=== PATIENT | female | born 1990 | race Caucasian/White ===

== ENCOUNTER 2017-03-04 13:10 | Emergency (ER) | payer MEDICAID ==
[2017-03-04 13:19] VITALS: BP 120/60
--- NOTE | 2017-03-04 13:49 | EDM.PDOC ---
ED HPI GENERAL MEDICAL PROBLEM - General Chief Complaint: Skin Complaint Stated Complaint: CYST ON HER TAILBONE Time Seen by Provider: 03/04/17 13:40 Source of Information: Reports: Patient History Limitations: Reports: No Limitations - History of Present Illness INITIAL COMMENTS - FREE TEXT/NARRATIVE: 26 YO WF 33 weeks presents to ER complaining of left buttock pain and swelling from a cyst x 5 days. Pt was seen in [place] ER 2 days ago for the same. Pt had blood work and a call placed to Dr Adenike Sevilla for surgical recommendations. It was suggested that due to advanced and inability to lay on stomach for procedure that conservative measures of Sitz baths and warm compress be followed until after delivery. Pt was instructed that if symptoms worsened she should follow up in [place] for further evaluation and treatment. Pt states that she has been using heating pad and Sitz baths without improvement. Pt denies any fever/chills, no drainage from cyst and no surrounding cellulitis. Pt is here for I and D of left buttock abscess. Duration: Day(s): (5) Location: Reports: Other (left buttock) Quality: Reports: Ache Severity: Moderate Improves with: Reports: None Worsens with: Reports: None Associated Symptoms: Reports: No Other Symptoms Treatments DIGITAL DATA ANALYST: Reports: Acetaminophen, Other (see below) Other Treatments DIGITAL DATA ANALYST: warm baths Lower Sacral Pain Score (Numeric/FACES): 8 - Related Data Allergies Allergy/AdvReac Type Severity Reaction Status Date / Time Penicillins Allergy Rash Verified 03/04/17 13:19 Home Meds: Home Meds Pnv No.122/Iron/Folic Acid [ Multi Tablet] 1 each PO DAILY 03/02/17 [ History] Past Medical History [employer] History: Reports: Other (See Below) Other OB/BYN History: p cyst - Past Surgical History Musculoskeletal Surgical History: Reports: Other (See Below) Other Musculoskeletal Surgeries/Procedures:: ACL repair of LLE Social & Family History - Tobacco Use Smoking Status *Q: Former Smoker Years of Tobacco use: 6 Used Tobacco, but Quit: Yes Month Tobacco Last Used: 03/2014 Second Hand Smoke Exposure: No - Caffeine Use Caffeine Use: Reports: None - Alcohol Use Days Per Week of Alcohol Use: 0 - Recreational Drug Use Recreational Drug Use: No ED ROS GENERAL - Review of Systems Review Of Systems: See Below Constitutional: Reports: No Symptoms HEENT: Reports: No Symptoms Respiratory: Reports: No Symptoms Cardiovascular: Reports: No Symptoms Endocrine: Reports: No Symptoms GI/Abdominal: Reports: No Symptoms : Reports: No Symptoms Musculoskeletal: Reports: No Symptoms Skin: Reports: Other (large left buttock and gluteal cleft cyst ) Neurological: Reports: No Symptoms Psychiatric: Reports: No Symptoms Hematologic/Lymphatic: Reports: No Symptoms Immunologic: Reports: No Symptoms ED EXAM, SKIN/RASH Exam: See Below Exam Limited By: No Limitations General Appearance: Alert, WD/WN, No Apparent Distress Head: Atraumatic, Normocephalic Neck: Normal Inspection, Supple, Non-Tender, Full Range of Motion Respiratory/Chest: No Respiratory Distress, Lungs Clear, Normal Breath Sounds, No Accessory Muscle Use, Chest Non-Tender Cardiovascular: Normal Peripheral Pulses, Regular Rate, Rhythm, No Edema, No Gallop, No JVD, No Murmur, No Rub GI/Abdominal: Normal Bowel Sounds, Soft, Non-Tender, No Organomegaly, No Distention, No Abnormal Bruit, No Mass Back Exam: Other (large indurated area from gluteal fold to left buttock with pallor without erythema) Extremities: Normal Inspection, Normal Range of Motion, Non-Tender, No Pedal Edema, Normal Capillary Refill Neurological: Alert, Oriented, CN II-XII Intact, Normal Cognition, Normal Gait, Normal Reflexes, No Motor/Sensory Deficits Psychiatric: Normal Affect, Normal Mood Skin: Warm, Dry, Intact, Normal Color, No Rash Location, Skin: Back Associated features: Warmth, Tenderness, Swelling, Induration Lymphatic: No Adenopathy Course - Vital Signs Last Recorded V/S: Last Vital Signs Temp 36.4 C 03/04/17 13:17 Pulse 99 03/04/17 13:17 Resp 16 03/04/17 13:17 BP 120/60 03/04/17 13:17 Pulse Ox 98 03/04/17 13:17 - Orders/Labs/Meds Labs: Laboratory Tests 03/04/17 03/04/17 Range/Units 14:00 14:00 WBC 13.3 H (5.0-10.0) 10^3/uL RBC 3.89 (3.80-5.50) 10^6/uL Hgb 11.4 L (12.0-16.0) g/dL Hct 35.3 L (37.0-47.0) % MCV 90.9 (82.0-92.0) fL MCH 29.3 (27.0-31.0) pg MCHC 32.3 (32.0-36.0) g/dL RDW 13.6 (11.5-14.5) % Plt Count 292 (150-300) 10^3/uL MPV 7.8 (7.4-10.4) fL Neut % (Auto) 81.3 H (50.0-70.0) % Lymph % (Auto) 12.3 L (20.0-40.0) % [place] % (Auto) 6.0 (2.0-8.0) % Eos % (Auto) 0.3 L (1.0-3.0) % Baso % (Auto) 0.1 (0.0-1.0) % Neut # (Auto) 10.9 H (2.5-7.0) 10^3/uL Lymph # (Auto) 1.6 (1.0-4.0) 10^3/uL [place] # (Auto) 0.8 (0.1-0.8) 10^3/uL Eos # (Auto) 0.0 L (0.1-0.3) 10^3/uL Baso # (Auto) 0.0 (0.0-0.1) 10^3/uL Sodium 140 (136-145) mmol/L Potassium 3.9 (3.3-5.3) mmol/L Chloride 105 (98-115) mmol/L Carbon Dioxide 23.7 (21.0-32.0) mmol/L BUN 8 (6-25) mg/dL Creatinine 0.70 (0.51-1.17) mg/dL Est Cr Clr Drug Dosing 99.86 mL/min Estimated GFR (MDRD) > 60 mL/min Glucose 135 H (70-110) mg/dL Calcium 8.7 (8.7-10.3) mg/dL - Re-Assessments/Exams Free Text/Narrative Re-Assessment/Exam: 03/04/17 14:33 call placed to [place] one transfer for surgical/OB recommendations. Discusse with Dr Busch Surgery who will direct admit patient and consider I and D of possible infected abscess Departure - Departure Time of Disposition: 14:43 Disposition: DC/Tfer to Acute Hospital 02 Condition: Fair Clinical Impression: Pilonidal cyst with abscess - Discharge Information Referrals: Ailyn Mccormick, SENIOR ANALYTIC CONSULTANT [Primary Care Provider] - Forms: ED Department Discharge, Interfacility Transfer EMTALA - Assessment/Plan Assessment:: 1. possible infected pilonidal cyst Plan: 1. transfer to [facility] for surgical evaluation and treatment- Dr Busch 2. okay to go by private car
[2017-03-04 14:24] LABS: CHLORIDE,CL 105 mmol/L (98-115); SODIUM,NA 140 mmol/L (136-145)
== END 2017-03-04 14:55 ==
LOC: KA.ED 13:10
DX: L05.01 Pilonidal cyst with abscess (principal); Z88.0 Allergy status to penicillin; Z87.891 Personal history of nicotine dependence
CPT/HCPCS: 36415; 80048; 85025; 99283

== ENCOUNTER 2018-09-23 05:00 | Emergency (ER) | payer MEDICAID ==
[2018-09-23] MEDS ORDERED: Ketorolac 30 MG/ML SDV ONE (05:26)
[2018-09-23] MEDS ORDERED: Ondansetron 4 MG/2 ML SDV ONE (05:26)
[2018-09-23] MEDS ORDERED: Sodium Chloride 0.9% 1,000 ML ONE (05:27)
[2018-09-23] MEDS ORDERED: Sodium Chloride 0.9% 1,000 ML IV SCH (05:30)
[2018-09-23] MEDS ORDERED: Ondansetron 4 MG/2 ML SDV IVPUSH ONE (05:30)
[2018-09-23] MEDS ORDERED: Ketorolac 30 MG/ML SDV IVPUSH ONE (05:40)
--- NOTE | 2018-09-23 05:41 | EDM.PDOC ---
ED HPI GENERAL MEDICAL PROBLEM - General Chief Complaint: Abdominal Pain Stated Complaint: RUQ pain Time Seen by Provider: 09/23/18 05:20 Source of Information: Reports: Patient History Limitations: Reports: No Limitations - History of Present Illness INITIAL COMMENTS - FREE TEXT/NARRATIVE: 28 YO WF presents to ER complaining of RUQ abdominal pain which began approximately 1 month ago. Pt reports pain would wax and wane and was tolerable until last night after supper. Pt reports eating pizza and developing pain with nausea. Pt reports she was able to sleep until around 4am when it became unbearable. Pt denies any fever/chills, no vomiting. Pt reports no change in her typical bowel habits. Pt reports shes currently taking Zithromax for a possible strep infection. Onset Date: 09/22/18 Duration: Day(s): (1) Location: Reports: Abdomen Quality: Reports: Dull Severity: Moderate Improves with: Reports: None Worsens with: Reports: Eating Associated Symptoms: Reports: No Other Symptoms, Nausea/Vomiting. 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 Denies: Vomiting : Reports: No Symptoms Musculoskeletal: Reports: No Symptoms Skin: Reports: No Symptoms Neurological: Reports: No Symptoms Psychiatric: Reports: No Symptoms Hematologic/Lymphatic: Reports: No Symptoms Immunologic: Reports: No Symptoms ED EXAM, GI/ABD - Physical Exam Exam: See Below Exam Limited By: No Limitations General Appearance: Alert, WD/WN, No Apparent Distress Head: Atraumatic, Normocephalic Neck: Normal Inspection, Supple, Non-Tender, Full Range of Motion Respiratory/Chest: No Respiratory Distress, Lungs Clear, Normal Breath Sounds, No Accessory Muscle Use, Chest Non-Tender Cardiovascular: Normal Peripheral Pulses, Regular Rate, Rhythm, No Edema, No Gallop, No JVD, No Murmur, No Rub GI/Abdominal Exam: Normal Bowel Sounds, Soft, No Organomegaly, No Distention, No Abnormal Bruit, No Mass, Pelvis Stable, Tender (RUQ) Back Exam: Normal Inspection, Full Range of Motion, NT Extremities: Normal Inspection, Normal Range of Motion, Non-Tender, Normal Capillary Refill, No Pedal Edema Neurological: Alert, Oriented, CN II-XII Intact, Normal Cognition, Normal Gait, Normal Reflexes, No Motor/Sensory Deficits Psychiatric: Normal Affect, Normal Mood Skin Exam: Warm, Dry, Intact, Normal Color, No Rash Lymphatic: No Adenopathy Course - Orders/Labs/Meds Orders: Active Orders 24 hr Category Date Time Status Peripheral IV Care [RC] . DIRECTED Care 09/23/18 05:42 Active UA W/MICROSCOPIC [URIN] Stat Lab 09/23/18 06:30 Results Sodium Chloride 0.9% [Saline Flush] Med 09/23/18 05:42 Active 10 ml FLUSH Q8HR PRN Peripheral IV Insertion Adult [OM.PC] Routine Oth 09/23/18 05:42 Ordered Medication Orders Sodium Chloride (Saline Flush) 10 ml FLUSH Q8HR PRN PRN Reason: keep vein open Labs: Laboratory Tests 09/23/18 09/23/18 09/23/18 Range/Units 05:30 05:30 06:30 WBC 13.02 H (5.00-10.00) 10^3/uL RBC 4.92 (3.80-5.50) 10^6/uL Hgb 13.9 (12.0-16.0) g/dL Hct 41.2 (37.0-47.0) % MCV 83.7 D (82.0-92.0) fL MCH 28.3 (27.0-31.0) pg MCHC 33.7 (32.0-36.0) g/dL RDW 13.7 (11.5-14.5) % Plt Count 283 (150-400) 10^3/uL MPV 9.3 (7.4-10.4) fL Immature Gran % (Auto) 0.2 (0.0-5.0) % Neut % (Auto) 80.5 H (50.0-70.0) % Lymph % (Auto) 13.3 L (20.0-40.0) % [place] % (Auto) 4.7 (2.0-8.0) % Eos % (Auto) 1.1 (1.0-3.0) % Baso % (Auto) 0.2 (0.0-1.0) % Immature Gran # (Auto) 0.02 (0.00-0.50) 10^3/uL Neut # (Auto) 10.49 H (2.50-7.00) 10^3/uL Lymph # (Auto) 1.73 (1.00-4.00) 10^3/uL [place] # (Auto) 0.61 (0.10-0.80) 10^3/uL Eos # (Auto) 0.14 (0.10-0.30) 10^3/uL Baso # (Auto) 0.03 (0.00-0.10) 10^3/uL Sodium 135 L (136-145) mmol/L Potassium 3.9 (3.3-5.3) mmol/L Chloride 103 (98-115) mmol/L Carbon Dioxide 21.3 (21.0-32.0) mmol/L Anion Gap 14.6 (5-15) mmol/L BUN 14 (6-25) mg/dL Creatinine 0.74 (0.51-1.17) mg/dL Est Cr Clr Drug Dosing 96.86 mL/min Estimated GFR (MDRD) > 60 mL/min Glucose 109 H (75 - 99) mg/dL Calcium 8.9 (8.7-10.3) mg/dL Total Bilirubin 0.5 (0.2-1.0) mg/dL AST 12 L (15-37) U/L ALT 19 (12-78) U/L Alkaline Phosphatase 113 (46-116) IU/L Total Protein 7.3 (6.4-8.2) g/dL Albumin 3.26 (3.00-4.80) g/dL Lipase 75 (73-393) U/L HCG, Qual Negative (NEGATIVE) Urine Color Yellow (YELLOW) Urine Appearance Slightly cloudy H (CLEAR) Urine pH 5.5 (5.0-9.0) Ur Specific [place] 1.025 (1.005-1.030) Urine Protein Negative (NEGATIVE) mg/dL Urine Glucose (UA) Negative (NEGATIVE) mg/dL Urine Ketones Negative (NEGATIVE) mg/dL Urine Occult Blood Negative (NEGATIVE) Urine Nitrite Negative (NEGATIVE) Urine Bilirubin Negative (NEGATIVE) Urine Urobilinogen 0.2 (0.2-1.0) E.U./dL Ur Leukocyte Esterase Trace H (NEGATIVE) Meds: Medications Generic Name Dose Route Start Last Admin Trade Name Freq PRN Reason Stop Dose Admin Sodium Chloride 10 ml 09/23/18 05:42 Saline Flush FLUSH Q8HR PRN keep vein open Discontinued Medications Generic Name Dose Route Start Last Admin Trade Name Freq PRN Reason Stop Dose Admin Sodium Chloride Confirm 09/23/18 05:27 Normal Saline Administered 09/23/18 05:28 Dose 1,000 mls @ as directed .ROUTE .STK-MED ONE Ketorolac Tromethamine Confirm 09/23/18 05:26 Toradol Administered 09/23/18 05:27 Dose 30 mg .ROUTE .STK-MED ONE Ondansetron HCl Confirm 09/23/18 05:26 Zofran Administered 09/23/18 05:27 Dose 4 mg .ROUTE .STK-MED ONE - Re-Assessments/Exams Free Text/Narrative Re-Assessment/Exam: 09/23/18 07:12 Pt reports pain improved after toradol/zofran. Pt smiling and in NAD. Offered additional pain medication prior to discharge which patient agreed. Departure - Departure Time of Disposition: 07:13 Disposition: Home, Self-Care 01 Condition: Good Clinical Impression: Cholelithiasis Qualifiers: Cholangitis presence: without cholangitis Biliary obstruction: without biliary obstruction - Discharge Information Prescriptions: Hydrocodone/Acetaminophen [Hydrocodon-Acetaminophn 10-325] 1 each PO Q6HR PRN # 10 tablet PRN Reason: Pain Ondansetron [Zofran ODT] 4 mg PO Q6H PRN #6 tab.dis PRN Reason: Vomiting Instructions: Cholelithiasis Forms: ED Department Discharge Additional Instructions: 1. discharge home 2. recommend RUQ ultrasound today in [facility] to rule out cholecystitis 3. avoid fatty foods, large meals, long periods of fasting (eat small meals/ snacks every 3 hours), avoid dairy 4. hydrocodone 10/325 #10 1 ever 6 hours as needed for pain 5. zofran 4mg ODT 1 every 6 hours as needed for nausea/vomiting - My Orders Last 24 Hours: My Active Orders 09/23/18 05:42 Peripheral IV Care [RC] . DIRECTED Sodium Chloride 0.9% [Saline Flush] 10 ml FLUSH Q8HR PRN Peripheral IV Insertion Adult [OM.PC] Routine 09/23/18 06:30 UA W/MICROSCOPIC [URIN] Stat - Assessment/Plan Last 24 Hours: My Active Orders 09/23/18 05:42 Peripheral IV Care [RC] . DIRECTED Sodium Chloride 0.9% [Saline Flush] 10 ml FLUSH Q8HR PRN Peripheral IV Insertion Adult [OM.PC] Routine 09/23/18 06:30 UA W/MICROSCOPIC [URIN] Stat Assessment:: 1. Cholelithiasis Plan: 1. discharge home 2. recommend RUQ ultrasound today in [facility] to rule out cholecystitis 3. avoid fatty foods, large meals, long periods of fasting (eat small meals/ snacks every 3 hours), avoid dairy 4. hydrocodone 10/325 #10 1 ever 6 hours as needed for pain 5. zofran 4mg ODT 1 every 6 hours as needed for nausea/vomiting
[2018-09-23] MEDS ORDERED: Sodium Chloride 0.9% 10 ML Syringe FLUSH PRN (05:42)
[2018-09-23 06:08] LABS: ANION GAP 14.6 mmol/L (5-15); CHLORIDE,CL 103 mmol/L (98-115); SODIUM,NA 135 mmol/L (136-145)
[2018-09-23] MEDS ORDERED: HYDROmorphone 1 MG/ML Syringe IVPUSH ONE (07:12)
[2018-09-23 08:02] VITALS: BP 130/78; PULSE 86
== END 2018-09-23 07:40 | disposition home or self-care (01) ==
LOC: KA.ED 05:00
DX: K80.20 Calculus of gallbladder without cholecystitis without obstruction (principal); Z88.0 Allergy status to penicillin; Z79.899 Other long term (current) drug therapy
CPT/HCPCS: 80053; 81001; 83690; 84703; 85025; 96361; 96374; 96375; 99284; J1170; J1885; J2405; J7030

== ENCOUNTER 2018-09-25 22:50 | Emergency (ER) | payer MEDICAID ==
[2018-09-25] MEDS ORDERED: Sodium Chloride 0.9% 10 ML Syringe FLUSH PRN (22:58)
--- NOTE | 2018-09-25 23:14 | EDM.PDOC ---
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 Medication(s), Other (see below) (Hydrocodone 10 325mg) Right Abdomen Pain Score (Numeric/FACES): 5 - Related Data Allergies Allergy/AdvReac Type Severity Reaction Status Date / Time Penicillins Allergy Rash Verified 09/23/18 05:44 Home Meds: Home Meds Hydrocodone/Acetaminophen [Hydrocodon-Acetaminophn 10-325] 1 each PO Q6HR PRN # 10 tablet 09/23/18 [Rx] Ondansetron [Zofran ODT] 4 mg PO Q6H PRN #6 tab.dis 09/23/18 [Rx] Past Medical History HEENT History: Reports: None Cardiovascular History: Reports: None Respiratory History: Reports: Asthma, Other (See Below) (smoking related) Gastrointestinal History: Reports: Chronic Diarrhea, Other (See Below) (lactose intolerant) Genitourinary History: Reports: None MAGNETIC TESTER History: 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: Other (See Below) : 2 Para: 2 Other MAGNETIC TESTER History: p cyst Musculoskeletal History: Reports: None, Other (See Below) (ACL tear Left knee) Neurological History: Reports: None Psychiatric History: Reports: None Endocrine/Metabolic History: Reports: None Hematologic History: Reports: None Immunologic History: Reports: None - Past Surgical History Head Surgeries/Procedures: Reports: None HEENT Surgical History: Reports: None Cardiovascular Surgical History: Reports: None Respiratory Surgical History: Reports: None GI Surgical History: Reports: None Endocrine Surgical History: Reports: None Musculoskeletal Surgical History: Reports: Arthroscopic Knee, Other (See Below) Other Musculoskeletal Surgeries/Procedures:: ACL repair of LLE - Past Imaging History Past Imaging History: Reports: MRI (knee), Ultrasound (rt upper quadrant) Social & Family History - Tobacco Use Smoking Status *Q: Current Every Day Smoker Tobacco Use Within Last Twelve Months: Cigarettes Used Tobacco, but Quit: No Smoking Cessation Information Provided To Patient: Patient Refused - Caffeine Use Caffeine Use: Reports: None ED ROS GENERAL - Review of Systems Review Of Systems: See Below Constitutional: Reports: Chills HEENT: Reports: Throat Pain Respiratory: Reports: Cough (She attributes to smoking) Cardiovascular: Denies: Chest Pain, Claudication, Dyspnea on Exertion Endocrine: Reports: No Symptoms GI/Abdominal: Reports: Abdominal Pain (Right upper quadrant greater than one month worsening over the past week), Diarrhea : Reports: No Symptoms Musculoskeletal: Reports: No Symptoms Skin: Reports: No Symptoms Neurological: Reports: No Symptoms Psychiatric: Reports: No Symptoms Hematologic/Lymphatic: Reports: No Symptoms Immunologic: Reports: No Symptoms ED EXAM, GENERAL - Physical Exam Exam: See Below Free Text/Narrative:: Alert and oriented in mild painful distress. PERRLA EOM intact no icterus no injection Auditory canals are clear no involvement with tympanic membranes Nasal passages are patent pink and moist Posterior oral pharynx is extremely red with exudative slough to the bilateral tonsillar pillars halitosis as well as order smoking product present neck Supple no lymphadenopathy Thorax is clear throughout mild rhonchi I attributed to her smoking no wheezes. Cardiac S1-S2 no appreciated murmur. Abdomen rotund right upper quadrant tenderness radiating upwards as well as lateral, no epigastric no left upper quadrant, no lower quadrant no rebound tenderness. Bowel sounds are present in all 4 quadrants rectal is deferred. Lower extremities are pink warm and dry with no edema Exam Limited By: No Limitations Course - Vital Signs Last Recorded V/S: Last Vital Signs Temp 37.0 C 09/25/18 23:00 Pulse 96 09/26/18 00:07 Resp 20 09/26/18 00:07 BP 137/81 09/26/18 00:07 Pulse Ox 96 09/26/18 00:07 - Orders/Labs/Meds Orders: Active Orders 24 hr Category Date Time Status Peripheral IV Care [RC] . DIRECTED Care 09/25/18 22:58 Active CULTURE STREP A CONFIRMATION [RM] Stat Lab 09/25/18 23:14 Results STREP SCRN A RAPID W CULT CONF [RM] Stat Lab 09/25/18 23:19 Ordered Sodium Chloride 0.9% [Normal Saline] 1,000 ml Med 09/25/18 23:30 Ordered IV ASDIRECTED Sodium Chloride 0.9% [Saline Flush] Med 09/25/18 22:58 Active 10 ml FLUSH Q8HR PRN Peripheral IV Insertion Adult [OM.PC] Routine Oth 09/25/18 22:58 Ordered Medication Orders Sodium Chloride (Normal Saline) 1,000 mls @ 500 mls/hr IV ASDIRECTED SONNY Last Admin: 09/25/18 23:33 Dose: 500 mls/hr Sodium Chloride (Saline Flush) 10 ml FLUSH Q8HR PRN PRN Reason: keep vein open Last Admin: 09/25/18 23:33 Dose: 10 ml Labs: Laboratory Tests 09/25/18 09/25/18 09/25/18 Range/Units 23:10 23:10 23:15 WBC 8.13 (5.00-10.00) 10^3/uL RBC 4.88 (3.80-5.50) 10^6/uL Hgb 14.0 (12.0-16.0) g/dL Hct 41.7 (37.0-47.0) % MCV 85.5 (82.0-92.0) fL MCH 28.7 (27.0-31.0) pg MCHC 33.6 (32.0-36.0) g/dL RDW 13.7 (11.5-14.5) % Plt Count 281 (150-400) 10^3/uL MPV 9.7 (7.4-10.4) fL Immature Gran % (Auto) 0.1 (0.0-5.0) % Neut % (Auto) 65.1 (50.0-70.0) % Lymph % (Auto) 26.4 (20.0-40.0) % Ida % (Auto) 6.8 (2.0-8.0) % Eos % (Auto) 1.2 (1.0-3.0) % Baso % (Auto) 0.4 (0.0-1.0) % Immature Gran # (Auto) 0.01 (0.00-0.50) 10^3/uL Neut # (Auto) 5.29 (2.50-7.00) 10^3/uL Lymph # (Auto) 2.15 (1.00-4.00) 10^3/uL Ida # (Auto) 0.55 (0.10-0.80) 10^3/uL Eos # (Auto) 0.10 (0.10-0.30) 10^3/uL Baso # (Auto) 0.03 (0.00-0.10) 10^3/uL Sodium 136 (136-145) mmol/L Potassium 3.8 (3.3-5.3) mmol/L Chloride 102 (98-115) mmol/L Carbon Dioxide 25.6 (21.0-32.0) mmol/L Anion Gap 12.2 (5-15) mmol/L BUN 12 (6-25) mg/dL Creatinine 0.84 (0.51-1.17) mg/dL Est Cr Clr Drug Dosing TNP Estimated GFR (MDRD) > 60 mL/min Glucose 97 (75 - 99) mg/dL Calcium 8.9 (8.7-10.3) mg/dL Total Bilirubin 0.2 (0.2-1.0) mg/dL AST 18 (15-37) U/L ALT 29 (12-78) U/L Alkaline Phosphatase 122 H (46-116) IU/L Total Protein 7.6 (6.4-8.2) g/dL Albumin 3.25 (3.00-4.80) g/dL Amylase 47 (25-125) U/L Lipase 90 (73-393) U/L Specimen Type Urincc Urine Color Yellow (YELLOW) Urine Appearance Slightly cloudy H (CLEAR) Urine pH 5.5 (5.0-9.0) Ur Specific [place] 1.025 (1.005-1.030) Urine Protein Negative (NEGATIVE) mg/dL Urine Glucose (UA) Negative (NEGATIVE) mg/dL Urine Ketones Negative (NEGATIVE) mg/dL Urine Occult Blood Trace-intact H (NEGATIVE) Urine Nitrite Negative (NEGATIVE) Urine Bilirubin Negative (NEGATIVE) Urine Urobilinogen 0.2 (0.2-1.0) E.U./dL Ur Leukocyte Esterase Trace H (NEGATIVE) Urine RBC 0-5 (0-5) /HPF Urine WBC 5-10 H (0-5) /HPF Ur Epithelial Cells Moderate H /LPF Urine Bacteria Few (NONE TO FEW) /HPF Meds: Medications Generic Name Dose Route Start Last Admin Trade Name Perri PRN Reason Stop Dose Admin Sodium Chloride 1,000 mls @ 500 mls/hr 09/25/18 23:30 09/25/18 23:33 Normal Saline IV 500 mls/hr ASDIRECTED SONNY Administration Sodium Chloride 10 ml 09/25/18 22:58 09/25/18 23:33 Saline Flush FLUSH 10 ml Q8HR PRN Administration keep vein open Discontinued Medications Generic Name Dose Route Start Last Admin Trade Name Frereinaldo PRN Reason Stop Dose Admin Sodium Chloride Confirm 09/25/18 23:28 09/25/18 23:32 Normal Saline Administered 09/25/18 23:29 Not Given Dose 500 mls @ as directed .ROUTE .STK-MED ONE Sodium Chloride Confirm 09/25/18 23:30 09/25/18 23:54 Normal Saline Administered 09/25/18 23:31 Not Given Dose 1,000 mls @ as directed .ROUTE .STK-MED ONE Meperidine HCl 50 mg 09/25/18 23:21 09/25/18 23:32 Demerol IVPUSH 09/25/18 23:22 50 mg ONETIME ONE Administration Ondansetron HCl 8 mg 09/25/18 23:43 09/25/18 23:47 Zofran IVPUSH 09/25/18 23:44 8 mg ONETIME ONE Administration Departure - Departure Time of Disposition: 00:30 Disposition: Home, Self-Care 01 Condition: Good Clinical Impression: Cholecystitis, Pharyngitis - Discharge Information *PRESCRIPTION DRUG MONITORING PROGRAM REVIEWED*: Not Applicable *COPY OF PRESCRIPTION DRUG MONITORING REPORT IN PATIENT SILVESTRE: Not Applicable Instructions: Gallbladder Eating Plan Forms: ED Department Discharge Additional Instructions: Home rest maintain good fluid intake. Avoid dairy products other than yogurt to help settle the GI tract from your antibiotic you had taken. Consideration for lactose diet would be beneficial. Avoid any foods that contain fat/grease or dairy products as in butter/peanut butter, or any foods that are oily in nature. It is safe to drink water and eat lettuce, and you may have chicken breast with no skin there is prepared by broiler or grilling with no oils, margarine's or any grease preparation. Discussed with your provider if they are able to make arrangements for scan sooner than the 26th of this month as your discomfort seems to be worsening on a daily basis. Try decrease and stop smoking as possible for overall benefit to your health as well as her family members. Call or return if symptoms worsen or pain becomes unbearable with your current medication regimen. - Problem List & Annotations (1) Cholecystitis SNOMED Code(s): 06588645 Code(s): K81.9 - CHOLECYSTITIS, UNSPECIFIED Status: Chronic Priority: High (2) Smokes tobacco daily SNOMED Code(s): 442658047 Code(s): Z72.0 - TOBACCO USE Status: Acute Priority: Medium (3) Pharyngitis SNOMED Code(s): 424295799 Code(s): J02.9 - ACUTE PHARYNGITIS, UNSPECIFIED Status: Chronic Priority : Medium Onset Date: ~09/24/18 Annotation/Comment:: Placed on azithromycin Z -Hal on the eighth prophylaxis treatment as children were positive for strep Qualifiers: Pharyngitis/tonsillitis etiology: unspecified etiology Qualified Code(s): J02.9 - Acute pharyngitis, unspecified - Problem List Review Problem List Initiated/Reviewed/Updated: Yes - My Orders Last 24 Hours: My Active Orders 09/25/18 22:58 Peripheral IV Care [RC] . DIRECTED Sodium Chloride 0.9% [Saline Flush] 10 ml FLUSH Q8HR PRN Peripheral IV Insertion Adult [OM.PC] Routine 09/25/18 23:14 CULTURE STREP A CONFIRMATION [RM] Stat 09/25/18 23:19 STREP SCRN A RAPID W CULT CONF [RM] Stat 09/25/18 23:30 Sodium Chloride 0.9% [Normal Saline] 1,000 ml IV ASDIRECTED - Assessment/Plan Last 24 Hours: My Active Orders 09/25/18 22:58 Peripheral IV Care [RC] . DIRECTED Sodium Chloride 0.9% [Saline Flush] 10 ml FLUSH Q8HR PRN Peripheral IV Insertion Adult [OM.PC] Routine 09/25/18 23:14 CULTURE STREP A CONFIRMATION [RM] Stat 09/25/18 23:19 STREP SCRN A RAPID W CULT CONF [RM] Stat 09/25/18 23:30 Sodium Chloride 0.9% [Normal Saline] 1,000 ml IV ASDIRECTED Plan: Home rest maintain good fluid intake. Avoid dairy products other than yogurt to help settle the GI tract from your antibiotic you had taken. Consideration for lactose diet would be beneficial. Avoid any foods that contain fat/grease or dairy products as in butter/peanut butter, or any foods that are oily in nature. It is safe to drink water and eat lettuce, and you may have chicken breast with no skin there is prepared by broiler or grilling with no oils, margarine's or any grease preparation. Discussed with your provider if they are able to make arrangements for scan sooner than the of this month as your discomfort seems to be worsening on a daily basis. Try decrease and stop smoking as possible for overall benefit to your health as well as her family members. Call or return if symptoms worsen or pain becomes unbearable with your current medication regimen.
[2018-09-25] MEDS ORDERED: Meperidine PF 50 MG/ML Syringe IVPUSH ONE (23:21)
[2018-09-25] MEDS ORDERED: Sodium Chloride 0.9% 0 ML ONE (23:28)
[2018-09-25] MEDS ORDERED: Sodium Chloride 0.9% 1,000 ML IV SCH (23:30)
[2018-09-25] MEDS ORDERED: Sodium Chloride 0.9% 250 ML IV SCH (23:30)
[2018-09-25] MEDS ORDERED: Sodium Chloride 0.9% 1,000 ML ONE (23:30)
[2018-09-25] MEDS ORDERED: Ondansetron 4 MG/2 ML SDV IVPUSH ONE (23:43)
[2018-09-25 23:46] LABS: ANION GAP 12.2 mmol/L (5-15); CHLORIDE,CL 102 mmol/L (98-115); SODIUM,NA 136 mmol/L (136-145)
[2018-09-26 00:08] VITALS: BP 137/81; PULSE 96
== END 2018-09-26 00:35 | disposition home or self-care (01) ==
LOC: KA.ED 22:50
DX: K81.9 Cholecystitis, unspecified (principal); J02.9 Acute pharyngitis, unspecified; F17.210 Nicotine dependence, cigarettes, uncomplicated; Z88.0 Allergy status to penicillin
CPT/HCPCS: 80053; 81001; 82150; 83690; 85025; 87081; 87430; 96361; 96374; 96375; 99284; J2175; J2405; J7030

== ENCOUNTER 2020-01-03 06:48 | Emergency (ER) | payer MEDICAID ==
[2020-01-03 07:02] VITALS: BP 135/78; PULSE 86
[2020-01-03] MEDS: Tetracaine HCl/PF 0.5% 4 ML Bottle EYERT ONE (07:42)
--- NOTE | 2020-01-03 07:54 | EDM.PDOC ---
ED HPI GENERAL MEDICAL PROBLEM - General Chief Complaint: General Stated Complaint: foreign boy sensation in right eye Time Seen by Provider: 01/03/20 07:50 Source of Information: Reports: Patient History Limitations: Reports: No Limitations - History of Present Illness INITIAL COMMENTS - FREE TEXT/NARRATIVE: 29 YO WF PRESENTS TO ER WITH FOREIGN BODY SENSATION IN RIGHT EYE AFTER CUTTING WOOD LAST NIGHT. PT REPORTS SHE WENT TO BED AND WHEN SHE WOKE SHE STILL FELT LIKE SOMETHING WAS IN HER EYE PROMPTING ER EVALUATION. AT THE TIME OF EXAM PT REPORTS SHE THINKS IT MAY HAVE COME OUT WHILE WAITING FOR THE PROVIDER. PT DENIES ANY VISUAL CHANGES, NO GLOBAL DISCOMFORT OR HEADACHE. Onset Date: 01/02/20 Onset Time: 20:00 Duration: Day(s): (1) Quality: Reports: Ache Severity: Mild Improves with: Reports: None Worsens with: Reports: None Associated Symptoms: Reports: No Other Symptoms - Related Data Allergies Allergy/AdvReac Type Severity Reaction Status Date / Time hydrocodone [From [place]] Allergy Anaphylactic Verified 01/03/20 07:04 Shock Penicillins Allergy Rash Verified 01/03/20 07:04 Home Meds: Home Meds Hydrocort/Neomycin/Polymyxin B [Cortisporin Ophth Susp] 3 drop OP Q4H #1 bottle 01/03/20 [Rx] Past Medical History HEENT History: Reports: None Cardiovascular History: Reports: None Respiratory History: Reports: Asthma, Other (See Below) Gastrointestinal History: Reports: Chronic Diarrhea, Other (See Below) Genitourinary History: Reports: None 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 (See Below) Other X RAY NURSE History: p cyst Musculoskeletal History: Reports: None, Other (See Below) Neurological History: Reports: None Psychiatric History: Reports: None Endocrine/Metabolic History: Reports: None Hematologic History: Reports: None Immunologic History: Reports: None - Infectious Disease History Infectious Disease History: Reports: Mononucleosis - Past Surgical History Head Surgeries/Procedures: Reports: None HEENT Surgical History: Reports: None Cardiovascular Surgical History: Reports: None Respiratory Surgical History: Reports: None GI Surgical History: Reports: None Endocrine Surgical History: Reports: None Musculoskeletal Surgical History: Reports: Arthroscopic Knee, Other (See Below) Other Musculoskeletal Surgeries/Procedures:: ACL repair of LLE - Past Imaging History Past Imaging History: Reports: MRI (knee), Ultrasound (rt upper quadrant) Social & Family History - Family History Family Medical History: No Pertinent Family History - Tobacco Use Tobacco Use Status *Q: Current Every Day Tobacco User Years of Tobacco use: 12 Packs/Tins Daily: 0.2 - Caffeine Use Caffeine Use: Reports: None - Recreational Drug Use Recreational Drug Use: No ED ROS GENERAL - Review of Systems Review Of Systems: See Below Constitutional: Reports: No Symptoms HEENT: Reports: Eye Pain. Denies: Contact Lenses, Eye Discharge, Glasses Respiratory: Reports: No Symptoms Cardiovascular: Reports: No Symptoms Endocrine: Reports: No Symptoms GI/Abdominal: Reports: No Symptoms : Reports: No Symptoms Musculoskeletal: Reports: No Symptoms Skin: Reports: No Symptoms Neurological: Reports: No Symptoms Psychiatric: Reports: No Symptoms Hematologic/Lymphatic: Reports: No Symptoms Immunologic: Reports: No Symptoms ED EXAM, GENERAL - Physical Exam Exam: See Below Exam Limited By: No Limitations General Appearance: Alert, WD/WN, No Apparent Distress Eye Exam: Right Eye: Conjunctival Injection, Bilateral Eye: EOMI, PERRL Ears: Normal External Exam, Normal Canal, Hearing Grossly Normal, Normal TMs Nose: Normal Inspection, Normal Mucosa, No Blood Throat/Mouth: Normal Inspection, Normal Lips, Normal Teeth, Normal Gums, Normal Oropharynx, Normal Voice, No Airway Compromise Head: Atraumatic, Normocephalic Neck: Normal Inspection, Supple, Non-Tender, Full Range of Motion Respiratory/Chest: No Respiratory Distress, Lungs Clear, Normal Breath Sounds, No Accessory Muscle Use, Chest Non-Tender Cardiovascular: Normal Peripheral Pulses GI/Abdominal: Normal Bowel Sounds, Soft, Non-Tender, No Organomegaly, No Distention, No Abnormal Bruit, No Mass Neurological: Alert, Oriented, CN II-XII Intact, Normal Cognition, Normal Gait, No Motor/Sensory Deficits Psychiatric: Normal Affect, Normal Mood Skin Exam: Warm, Dry, Intact, Normal Color, No Rash Lymphatic: No Adenopathy Course - Vital Signs Last Recorded V/S: Last Vital Signs Temp 36.2 C 01/03/20 06:55 Pulse 86 01/03/20 06:55 Resp 18 01/03/20 06:55 BP 135/78 01/03/20 06:55 Pulse Ox 98 01/03/20 06:55 - Orders/Labs/Meds Meds: Medications Discontinued Medications Generic Name Dose Route Start Last Admin Trade Name Freq PRN Reason Stop Dose Admin Tetracaine HCl 1 ml 01/03/20 07:38 Tetracaine 0.5% Steri-Unit Milady EYERT 01/03/20 07:39 ASDIRECTED ONE - Re-Assessments/Exams Free Text/Narrative Re-Assessment/Exam: 01/03/20 07:55 VISUAL ACUITY- 20/20 R 20/25 L NO EVIDENCE OF CORNEAL ABRASION OR FOREIGN BODY ON EXAM PT REPORTS SENSATION HAS RESOLVED Departure - Departure Time of Disposition: 07:59 Disposition: Home, Self-Care 01 Condition: Good Clinical Impression: Sensation of foreign body in eye - Discharge Information Prescriptions: Hydrocort/Neomycin/Polymyxin B [Cortisporin Ophth Susp] 3 drop OP Q4H #1 bottle Instructions: Eye Foreign Body Additional Instructions: 1. DISCHARGE HOME 2. CORTISPORIN OPTHAL SOLUTION 3 DROPS IN RIGHT EYE EVERY 4 HOURS X 3 DAYS 3. FOLLOW UP WITH PCP FOR FURTHER EVALUATION AND TREATMENT 4. RETURN TO ER FOR WORSENING SYMPTOMS Sepsis Event Note (ED) - Evaluation Sepsis Screening Result: No Definite Risk - Focused Exam Vital Signs: Vital Signs Temp Pulse Resp BP Pulse Ox 01/03/20 06:55 36.2 C 86 18 135/78 98 - Assessment/Plan Assessment:: 1. FOREIGN BODY SENSATION IN RIGHT EYE Plan: 1. DISCHARGE HOME 2. CORTISPORIN OPTHAL SOLUTION 3 DROPS IN RIGHT EYE EVERY 4 HOURS X 3 DAYS 3. FOLLOW UP WITH PCP FOR FURTHER EVALUATION AND TREATMENT 4. RETURN TO ER FOR WORSENING SYMPTOMS
== END 2020-01-03 08:10 | disposition home or self-care (01) ==
LOC: KA.ED 06:48
DX: H57.89 Other specified disorders of eye and adnexa (principal); J45.909 Unspecified asthma, uncomplicated; F17.210 Nicotine dependence, cigarettes, uncomplicated; Z88.5 Allergy status to narcotic agent; Z88.0 Allergy status to penicillin
CPT/HCPCS: 99283

== ENCOUNTER 2021-01-15 04:18 | Emergency (ER) | payer MEDICAID ==
[2021-01-15] MEDS ORDERED: Sodium Chloride 0.9% 1,000 ML ONE (04:44)
[2021-01-15] MEDS ORDERED: Ondansetron 4 MG/2 ML SDV ONE (04:44)
[2021-01-15] MEDS ORDERED: Ondansetron 4 MG/2 ML SDV IVPUSH ONE (04:46)
[2021-01-15] MEDS ORDERED: Sodium Chloride 0.9% 1,000 ML IV ONE (04:47)
[2021-01-15] MEDS ORDERED: Sodium Chloride 0.9% 10 ML Syringe FLUSH PRN (04:47)
[2021-01-15 05:25] LABS: CHLORIDE,CL 103 mmol/L (98-107); SODIUM,NA 140 mmol/L (136-145)
[2021-01-15 05:36] VITALS: BP 125/77; PULSE 84
--- NOTE | 2021-01-15 05:46 | EDM.PDOC ---
ED HPI GENERAL MEDICAL PROBLEM - General Chief Complaint: General Stated Complaint: head/vision issues Time Seen by Provider: 01/15/21 05:10 Source of Information: Reports: Patient History Limitations: Reports: No Limitations - History of Present Illness INITIAL COMMENTS - FREE TEXT/NARRATIVE: 30-year-old female presents with 1 week history of upper respiratory complaints, cough. This past evening she is experiencing some dizziness and visual vertigo symptoms. Her tested positive for COVID a week ago on Sunday. She has had the symptoms for approximately the same amount of time. She denies any fever or chills. She is without respiratory complaints consistent of shortness of breath, dyspnea or tachypnea. She has been taken NyQuil for her symptoms. She is not experiencing any GI symptoms or abdominal pain. Upon her presentation today she is nontoxic-appearing she is in no respiratory distress. She does have a cough. Onset: Gradual Onset Date: 01/07/21 Duration: Day(s):, Constant Location: Reports: Head Severity: Mild Improves with: Reports: None Worsens with: Reports: None Context: Reports: Sick Contact Associated Symptoms: Reports: Cough, Malaise. 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: Other Medication(s) (NyQuil) - Related Data Allergies Allergy/AdvReac Type Severity Reaction Status Date / Time hydrocodone [From [place]] Allergy Anaphylactic Verified 01/15/21 04:31 Shock Penicillins Allergy Rash Verified 01/15/21 04:31 Home Meds: Home Meds Acetaminophen 650 mg PO Q6H PRN 01/15/21 [History] Cholecalciferol (Vitamin D3) [Vitamin D3] 2,000 unit PO DAILY 01/15/21 [History] Dextromethorphan HB/Doxylamine [Daytime-Nighttime Cough Liquid] 30 ml PO Q4HR PRN 01/15/21 [History] Past Medical History HEENT History: Reports: None Cardiovascular History: Reports: None Respiratory History: Reports: Asthma, Other (See Below) Gastrointestinal History: Reports: Chronic Diarrhea, Other (See Below) Genitourinary History: Reports: None SEAM RUBBER History: Reports: Other (See Below) Other SEAM RUBBER History: p cyst Musculoskeletal History: Reports: None, Other (See Below) Neurological History: Reports: None Psychiatric History: Reports: None Endocrine/Metabolic History: Reports: None Hematologic History: Reports: None Immunologic History: Reports: None - Infectious Disease History Infectious Disease History: Reports: Mononucleosis - Past Surgical History Head Surgeries/Procedures: Reports: None HEENT Surgical History: Reports: None Cardiovascular Surgical History: Reports: None Respiratory Surgical History: Reports: None GI Surgical History: Reports: None Endocrine Surgical History: Reports: None Musculoskeletal Surgical History: Reports: Arthroscopic Knee, Other (See Below) Other Musculoskeletal Surgeries/Procedures:: ACL repair of LLE - Past Imaging History Past Imaging History: Reports: MRI (knee), Ultrasound (rt upper quadrant) Social & Family History - Family History Family Medical History: No Pertinent Family History - Tobacco Use Tobacco Use Status *Q: Current Every Day Tobacco User Years of Tobacco use: 13 Packs/Tins Daily: 0.3 - Caffeine Use Caffeine Use: Reports: None - Recreational Drug Use Recreational Drug Use: No ED ROS GENERAL - Review of Systems Review Of Systems: See Below Constitutional: Reports: Malaise. Denies: Fever, Chills, Weakness, Diaphoresis HEENT: Reports: Vertigo (Dizziness complaints). Denies: Vision Change Respiratory: Reports: Cough. Denies: Shortness of Breath, Wheezing, Sputum Cardiovascular: Reports: Lightheadedness. Denies: Chest Pain, Blood Pressure Problem, Orthopnea, Palpitations Endocrine: Reports: No Symptoms GI/Abdominal: Denies: Abdominal Pain, Diarrhea, Nausea, Vomiting : Reports: No Symptoms Musculoskeletal: Reports: No Symptoms Skin: Denies: Cyanosis, Diaphoresis, Pruritis, Rash Neurological: Reports: Dizziness. Denies: Confusion, Headache, Seizure, Syncope, Trouble Speaking, Difficulty Walking, Change in Speech, Gait Disturbance Psychiatric: Reports: No Symptoms Hematologic/Lymphatic: Reports: No Symptoms Immunologic: Reports: No Symptoms ED EXAM, GENERAL - Physical Exam Exam: See Below Exam Limited By: No Limitations General Appearance: Alert, No Apparent Distress, Obese, Other (Nontoxic- appearing no acute distress. No respiratory distress) Eye Exam: Bilateral Eye: EOMI Ears: Hearing Grossly Normal Throat/Mouth: No Airway Compromise Head: Atraumatic, Normocephalic Neck: Normal Inspection Respiratory/Chest: No Respiratory Distress, Lungs Clear, Normal Breath Sounds, No Accessory Muscle Use, Chest Non-Tender Cardiovascular: Regular Rate, Rhythm, No Murmur GI/Abdominal: Soft, Non-Tender Back Exam: Normal Inspection Extremities: Normal Inspection Neurological: Alert, Oriented, No Motor/Sensory Deficits Psychiatric: Normal Affect, Normal Mood Skin Exam: Warm Lymphatic: No Adenopathy Course - Vital Signs Last Recorded V/S: Last Vital Signs Temp 98.3 F 01/15/21 04:24 Pulse 84 01/15/21 04:24 Resp 20 01/15/21 04:24 BP 125/77 01/15/21 04:24 Pulse Ox 95 01/15/21 04:24 - Orders/Labs/Meds Orders: Active Orders 24 hr Category Date Time Status Peripheral IV Care [RC] . DIRECTED Care 01/15/21 04:47 Active Sodium Chloride 0.9% [Normal Saline] 1,000 ml Med 01/15/21 04:47 Active IV .BOLUS Sodium Chloride 0.9% [Saline Flush] Med 01/15/21 04:47 Active 10 ml FLUSH Q8HR PRN Peripheral IV Insertion Adult [OM.PC] Routine Oth 01/15/21 04:47 Ordered Medication Orders Sodium Chloride (Normal Saline) 1,000 mls @ 999 mls/hr IV .BOLUS ONE Stop: 01/15/21 05:47 Last Admin: 01/15/21 05:10 Dose: 999 mls/hr Documented by: MARCOS Sodium Chloride (Sodium Chloride 0.9% 10 Ml Syringe) 10 ml FLUSH Q8HR PRN PRN Reason: keep vein open Last Admin: 01/15/21 04:58 Dose: 10 ml Documented by: MARCOS Labs: Laboratory Tests 01/15/21 01/15/21 01/15/21 Range/Units 04:50 04:58 04:58 WBC 5.37 (5.00-10.00) 10^3/uL RBC 5.27 (3.80-5.50) 10^6/uL Hgb 14.7 (12.0-16.0) g/dL Hct 44.2 (37.0-47.0) % MCV 83.9 D (82.0-92.0) fL MCH 27.9 (27.0-31.0) pg MCHC 33.3 (32.0-36.0) g/dL RDW 13.5 (11.5-14.5) % Plt Count 157 D (150-400) 10^3/uL MPV 10.0 (7.4-10.4) fL Immature Gran % (Auto) 0.2 (0.0-5.0) % Neut % (Auto) 56.3 (50.0-70.0) % Lymph % (Auto) 34.1 (20.0-40.0) % Grant % (Auto) 8.8 H (2.0-8.0) % Eos % (Auto) 0.4 L (1.0-3.0) % Baso % (Auto) 0.2 (0.0-1.0) % Neut # (Auto) 3.03 (2.50-7.00) 10^3/uL Lymph # (Auto) 1.83 (1.00-4.00) 10^3/uL Grant # (Auto) 0.47 (0.10-0.80) 10^3/uL Eos # (Auto) 0.02 L (0.10-0.30) 10^3/uL Baso # (Auto) 0.01 (0.00-0.10) 10^3/uL Immature Gran # (Auto) 0.01 (0.00-0.50) 10^3/uL Sodium 140 (136-145) mmol/L Potassium 4.0 (3.5-5.1) mmol/L Chloride 103 (98-107) mmol/L Carbon Dioxide 23.0 (21.0-32.0) mmol/L Anion Gap 18.0 H (5-15) mmol/L BUN 14 (7-18) mg/dL Creatinine 0.95 (0.51-1.17) mg/dL Est Cr Clr Drug Dosing TNP Estimated GFR (MDRD) > 60 mL/min Glucose 105 (70-140) mg/dL Calcium 8.3 L (8.7-10.3) mg/dL SARS CoV-2 RNA Rapid BONNIE Positive H (NEGATIVE) Meds: Medications Generic Name Dose Route Start Last Admin Trade Name Freq PRN Reason Stop Dose Admin Sodium Chloride 1,000 mls @ 999 mls/hr 01/15/21 04:47 01/15/21 05:10 Normal Saline IV 01/15/21 05:47 999 mls/hr .BOLUS ONE Administration Sodium Chloride 10 ml 01/15/21 04:47 01/15/21 04:58 Sodium Chloride 0.9% 10 Ml Syringe FLUSH 10 ml Q8HR PRN Administration keep vein open Discontinued Medications Generic Name Dose Route Start Last Admin Trade Name Perri PRN Reason Stop Dose Admin Sodium Chloride Confirm 01/15/21 04:44 01/15/21 05:11 Normal Saline Administered 01/15/21 04:45 Not Given Dose 1,000 mls @ as directed .ROUTE .STK-MED ONE Ondansetron HCl Confirm 01/15/21 04:44 01/15/21 05:11 Ondansetron 4 Mg/2 Ml Sdv Administered 01/15/21 04:45 Not Given Dose 4 mg .ROUTE .STK-MED ONE Ondansetron HCl 4 mg 01/15/21 04:46 01/15/21 05:03 Ondansetron 4 Mg/2 Ml Sdv IVPUSH 01/15/21 04:47 4 mg ONETIME ONE Administration - Re-Assessments/Exams Free Text/Narrative Re-Assessment/Exam: 01/15/21 05:48 1 L of normal saline fluids is running. Discussed findings with the patient. She has a Covid positive test. Lab work otherwise looks unremarkable. Departure - Departure Time of Disposition: 18:30 Disposition: Home, Self-Care 01 Condition: Good Clinical Impression: COVID-19 long hauler manifesting chronic cough - Discharge Information Instructions: 10 Things You Can Do to Manage Your COVID-19 Symptoms at Home - [facility] (08/27/2020) Referrals: Yessy Elizondo MD [Primary Care Provider] - Forms: ED Department Discharge Care Plan Goals: 1. Symptomatic treatment for your upper respiratory infection and cough. You may continue with the NyQuil. 2. Tylenol for any fevers, chills, aches as needed 3. Continue with hydration. 4. Isolation, you have a positive COVID-19 test. You should stay home 10 days after your symptoms have improved. 5. You are not currently experiencing any respiratory distress and denying any significant breathing difficulties other than your cough. If the symptoms worsen or begin to experience difficulty with breathing you may return to the ER for reevaluation. Sepsis Event Note (ED) - Evaluation Sepsis Screening Result: No Definite Risk - Focused Exam Vital Signs: Vital Signs Temp Pulse Resp BP Pulse Ox 12/04/21 04:24 98.3 F 84 20 125/77 95 - My Orders Last 24 Hours: My Active Orders 01/15/21 04:47 Peripheral IV Care [RC] . DIRECTED Sodium Chloride 0.9% [Normal Saline] 1,000 ml IV .BOLUS Sodium Chloride 0.9% [Saline Flush] 10 ml FLUSH Q8HR PRN Peripheral IV Insertion Adult [OM.PC] Routine - Assessment/Plan Last 24 Hours: My Active Orders 01/15/21 04:47 Peripheral IV Care [RC] . DIRECTED Sodium Chloride 0.9% [Normal Saline] 1,000 ml IV .BOLUS Sodium Chloride 0.9% [Saline Flush] 10 ml FLUSH Q8HR PRN Peripheral IV Insertion Adult [OM.PC] Routine Assessment:: COVID-19 positive with cough, dizziness Plan: 1. Symptomatic treatment for your upper respiratory infection and cough. You may continue with the NyQuil. 2. Tylenol for any fevers, chills, aches as needed 3. Continue with hydration. 4. Isolation, you have a positive COVID-19 test. You should stay home 10 days after your symptoms have improved. 5. You are not currently experiencing any respiratory distress and denying any significant breathing difficulties other than your cough. If the symptoms worsen or begin to experience difficulty with breathing you may return to the ER for reevaluation.
== END 2021-01-15 06:13 | disposition home or self-care (01) ==
LOC: KA.ED 04:18
DX: U07.1 COVID-19 (principal); Z88.0 Allergy status to penicillin; Z88.5 Allergy status to narcotic agent; Z72.0 Tobacco use
CPT/HCPCS: 36415; 80048; 85025; 87635; 96374; 99284; J2405; J7030; U0002

== ENCOUNTER 2021-07-03 23:15 | Emergency (ER) | payer MEDICAID ==
[2021-07-03] MEDS ORDERED: Sodium Chloride 0.9% 1,000 ML IV ONE (23:40)
[2021-07-03] MEDS ORDERED: Sodium Chloride 0.9% 10 ML Syringe FLUSH PRN (23:40)
[2021-07-04 00:14] LABS: ANION GAP 14.1 mmol/L (5-15); CHLORIDE,CL 101 mmol/L (98-107); SODIUM,NA 136 mmol/L (136-145)
[2021-07-04 02:53] VITALS: BP 121/64; PULSE 108
== END 2021-07-04 01:45 | disposition home or self-care (01) ==
LOC: KA.ED 23:15
DX: R10.9 Unspecified abdominal pain (principal); E66.9 Obesity, unspecified; Z68.42 Body mass index [BMI] 45.0-49.9, adult; Z72.0 Tobacco use; Z86.16 Personal history of COVID-19; Z88.0 Allergy status to penicillin; Z88.5 Allergy status to narcotic agent
CPT/HCPCS: 36415; 80053; 81001; 82150; 83605; 83690; 84703; 85025; 87040; 99283; 99284; J7030

== ENCOUNTER 2022-05-02 20:59 | Emergency (ER) | payer MEDICAID ==
[2022-05-02] MEDS ORDERED: Sodium Chloride 0.9% 1,000 ML IV ONE (21:14)
[2022-05-02] MEDS ORDERED: Sodium Chloride 0.9% 10 ML Syringe FLUSH PRN (21:16)
[2022-05-02] MEDS ORDERED: Ketorolac 30 MG/ML SDV IVPUSH ONE (21:24)
[2022-05-02 21:35] LABS: ANION GAP 15.1 mmol/L (5-15); CHLORIDE,CL 99 mmol/L (98-107); ESTIMATED GFR 92 mL/min (>=60); SODIUM,NA 134 mmol/L (136-145)
[2022-05-03 10:15] VITALS: BP 125/78; PULSE 100
== END 2022-05-03 09:42 | disposition home or self-care (01) ==
LOC: KA.ED 20:59
DX: O02.1 Missed abortion (principal); J45.909 Unspecified asthma, uncomplicated; E66.9 Obesity, unspecified; Z68.42 Body mass index [BMI] 45.0-49.9, adult; Z88.5 Allergy status to narcotic agent; Z88.0 Allergy status to penicillin
CPT/HCPCS: 80048; 84703; 85025; 96361; 96374; 99284; 99284-25; J1885; J7030

== ENCOUNTER 2023-06-09 08:29 | Emergency (ER) | payer MEDICAID ==
[2023-06-09 08:39] VITALS: BP 122/84; PULSE 90
[2023-06-09 09:49] LABS: INFLUENZA A NAA NEGATIVE (NEGATIVE); INFLUENZA B NAA NEGATIVE (NEGATIVE); RESPIRATORY SYNCYTIAL VIR NAA NEGATIVE (NEGATIVE)
[2023-06-09 09:55] LABS: CORONAVIRUS COVID-19 NAA NEGATIVE (NEGATIVE)
== END 2023-06-09 10:20 | disposition home or self-care (01) ==
LOC: KA.ED 08:29
DX: J02.0 Streptococcal pharyngitis (principal); F17.200 Nicotine dependence, unspecified, uncomplicated; Z88.0 Allergy status to penicillin; Z88.5 Allergy status to narcotic agent; Z86.16 Personal history of COVID-19
CPT/HCPCS: 0241U; 87651-QW; 99283

== ENCOUNTER 2023-08-16 23:20 | Emergency (ER) | payer MEDICAID ==
[2023-08-16] MEDS: LORazepam 0.5 MG Tab PO ONE (23:40)
[2023-08-17 00:15] LABS: BASOPHILS ABSOLUTE AUTO 0.03 10^3/uL (0.00-0.10); BASOPHILS PERCENT AUTO 0.2 % (0.0-1.0); EOSINOPHILS ABSOLUTE AUTO 0.14 10^3/uL (0.10-0.30); EOSINOPHILS PERCENT AUTO 1.2 % (1.0-3.0); HEMATOCRIT 44.9 % (37.0-47.0); HEMOGLOBIN 14.5 g/dL (12.0-16.0); IMMATURE GRAN ABSOLUTE AUTO 0.02 10^3/uL (0.00-0.50); IMMATURE GRAN PERCENT AUTO 0.2 % (0.0-5.0); LYMPHOCYTES ABSOLUTE AUTO 2.36 10^3/uL (1.00-4.00); LYMPHOCYTES PERCENT AUTO 19.6 % (20.0-40.0); MEAN CORPUSCULAR HEMOGLOBIN 28.3 pg (27.0-31.0); MEAN CORPUSCULAR HGB CONC 32.3 g/dL (32.0-36.0); MEAN CORPUSCULAR VOLUME 87.5 fL (82.0-92.0); MEAN PLATELET VOLUME 9.3 fL (7.4-10.4); MONOCYTES ABSOLUTE AUTO 0.74 10^3/uL (0.10-0.80); MONOCYTES PERCENT AUTO 6.2 % (2.0-8.0); NEUTROPHILS ABSOLUTE AUTO 8.73 10^3/uL (2.50-7.00); NEUTROPHILS PERCENT AUTO 72.6 % (50.0-70.0); PLATELET COUNT,PLT 332 10^3/uL (150-400); RED BLOOD CELL COUNT 5.13 10^6/uL (3.80-5.50); RED CELL DISTRIBUTION WIDTH 13.6 % (11.5-14.5); WHITE BLOOD CELL COUNT,WBC 12.02 10^3/uL (5.00-10.00)
[2023-08-17] MEDS: LORazepam 0.5 MG Tab ONE (00:27)
[2023-08-17 00:28] LABS: AMPHETAMINES SCREEN, URINE NEGATIVE (NEGATIVE); BARBITURATE SCREEN,URINE NEGATIVE (NEGATIVE); BENZODIAZEPINES SCREEN,URINE NEGATIVE (NEGATIVE); COCAINE METABOLITES,URINE NEGATIVE (NEGATIVE); METHADONE SCREEN, URINE NEGATIVE (NEGATIVE); METHAMPHETAMINES SCREEN, URINE NEGATIVE (NEGATIVE); OXYCODONE SCREEN,URINE NEGATIVE (NEGATIVE); PCP SCREEN,URINE NEGATIVE (NEGATIVE); TCA SCREEN,URINE NEGATIVE (NEGATIVE); THC SCREEN,URINE 50 NG/ML POSITIVE (NEGATIVE)
[2023-08-17 00:29] LABS: APPEARANCE,URINE SLIGHTLY CLOUDY (CLEAR); BILIRUBIN,URINE NEGATIVE (NEGATIVE); COLOR,URINE YELLOW (YELLOW); GLUCOSE,URINE NEGATIVE (NEGATIVE); KETONES,URINE NEGATIVE (NEGATIVE); LEUKOCYTE ESTERASE,URINE TRACE (NEGATIVE); NITRITE,URINE NEGATIVE (NEGATIVE); PROTEIN,URINE NEGATIVE (NEGATIVE); UROBILINOGEN,URINE 0.2 E.U./dL (0.2-1.0)
[2023-08-17 00:31] LABS: OCCULT BLOOD,URINE MODERATE (NEGATIVE)
[2023-08-17 00:31] LABS: ALBUMIN 3.45 g/dL (3.40-5.00); ANION GAP 16.2 mmol/L (5-15); BILIRUBIN TOTAL 0.2 mg/dL (0.2-1.0); CALCIUM 8.9 mg/dL (8.7-10.3); CARBON DIOXIDE,CO2 25.4 mmol/L (21.0-32.0); CREATININE 0.97 mg/dL (0.51-1.17); EST CRCL DRUG DOSING (CG) 71.23 mL/min; POTASSIUM,K 3.6 mmol/L (3.5-5.1); PROTEIN TOTAL,TP 7.9 g/dL (6.4-8.2)
[2023-08-17 00:32] LABS: BACTERIA,URINE MODERATE /HPF (NONE TO FEW); EPITHELIAL CELLS,URINE MODERATE /LPF; WBC,URINE 0-5 /HPF (0-5)
[2023-08-17] MEDS: Sodium Chloride 0.9% 1,000 ML IV ONE (00:36)
[2023-08-17] MEDS: LORazepam 2 MG/ML SDV IVPUSH ONE (01:01)
[2023-08-17 01:26] VITALS: PULSE 100
[2023-08-17 01:33] VITALS: BP 126/67
[2023-08-17] MEDS: LORazepam 0.5 MG Tab PO ONE (01:56)
== END 2023-08-17 02:00 | disposition home or self-care (01) ==
LOC: KA.ED 23:20
DX: F41.9 Anxiety disorder, unspecified (principal); R25.1 Tremor, unspecified; R00.0 Tachycardia, unspecified; F12.90 Cannabis use, unspecified, uncomplicated; E66.9 Obesity, unspecified; Z86.16 Personal history of COVID-19; Z88.0 Allergy status to penicillin; Z88.5 Allergy status to narcotic agent; Z68.42 Body mass index [BMI] 45.0-49.9, adult
CPT/HCPCS: 36415; 80053; 80305-QW; 81001; 85025; 87086; 96374; 99285-25; A9270-GY; J2060; J7030; Q3014

== ENCOUNTER 2023-08-24 01:10 | Emergency (ER) | payer MEDICAID ==
[2023-08-24] MEDS: Sodium Chloride 0.9% 10 ML Syringe FLUSH PRN (01:36)
[2023-08-24 01:48] LABS: BASOPHILS ABSOLUTE AUTO 0.03 10^3/uL (0.00-0.10); BASOPHILS PERCENT AUTO 0.2 % (0.0-1.0); EOSINOPHILS ABSOLUTE AUTO 0.17 10^3/uL (0.10-0.30); EOSINOPHILS PERCENT AUTO 1.4 % (1.0-3.0); HEMATOCRIT 42.3 % (37.0-47.0); HEMOGLOBIN 14.2 g/dL (12.0-16.0); IMMATURE GRAN ABSOLUTE AUTO 0.02 10^3/uL (0.00-0.50); IMMATURE GRAN PERCENT AUTO 0.2 % (0.0-5.0); LYMPHOCYTES ABSOLUTE AUTO 3.05 10^3/uL (1.00-4.00); LYMPHOCYTES PERCENT AUTO 24.4 % (20.0-40.0); MEAN CORPUSCULAR HEMOGLOBIN 28.9 pg (27.0-31.0); MEAN CORPUSCULAR HGB CONC 33.6 g/dL (32.0-36.0); MEAN PLATELET VOLUME 9.3 fL (7.4-10.4); MONOCYTES PERCENT AUTO 6.4 % (2.0-8.0); NEUTROPHILS ABSOLUTE AUTO 8.41 10^3/uL (2.50-7.00); NEUTROPHILS PERCENT AUTO 67.4 % (50.0-70.0); PLATELET COUNT,PLT 298 10^3/uL (150-400); RED BLOOD CELL COUNT 4.92 10^6/uL (3.80-5.50); RED CELL DISTRIBUTION WIDTH 13.4 % (11.5-14.5); WHITE BLOOD CELL COUNT,WBC 12.48 10^3/uL (5.00-10.00)
[2023-08-24 01:50] LABS: APPEARANCE,URINE SLIGHTLY CLOUDY (CLEAR); BILIRUBIN,URINE NEGATIVE (NEGATIVE); COLOR,URINE YELLOW (YELLOW); GLUCOSE,URINE NEGATIVE (NEGATIVE); KETONES,URINE NEGATIVE (NEGATIVE); LEUKOCYTE ESTERASE,URINE TRACE (NEGATIVE); NITRITE,URINE NEGATIVE (NEGATIVE); OCCULT BLOOD,URINE NEGATIVE (NEGATIVE); PROTEIN,URINE NEGATIVE (NEGATIVE); UROBILINOGEN,URINE 0.2 E.U./dL (0.2-1.0)
[2023-08-24] MEDS: Alum Hydrox/Mag Hydrox/Simeth 30 ML, Lidocaine 2% 15 ML PO ONE (01:50)
[2023-08-24 01:59] LABS: BACTERIA,URINE FEW /HPF (NONE TO FEW); EPITHELIAL CELLS,URINE MODERATE /LPF; RBC,URINE 0-5 /HPF (0-5)
[2023-08-24 02:09] LABS: ALANINE AMINOTRANSFERASE,ALT 16 U/L (14-63); ALBUMIN 3.23 g/dL (3.40-5.00); ALKALINE PHOSPHATASE 117 U/L (46-116); ANION GAP 14.9 mmol/L (5-15); ASPARTATE AMNIOTRANSFERASE,AST 11 U/L (15-37); BILIRUBIN TOTAL 0.3 mg/dL (0.2-1.0); BLOOD UREA NITROGEN,BUN 13 mg/dL (7-18); CALCIUM 8.9 mg/dL (8.7-10.3); CARBON DIOXIDE,CO2 25.9 mmol/L (21.0-32.0); CHLORIDE,CL 102 mmol/L (98-107); EST CRCL DRUG DOSING (CG) 66.19 mL/min; GLUCOSE RANDOM 107 mg/dL (70-140); LIPASE 27 U/L (16-77); POTASSIUM,K 3.8 mmol/L (3.5-5.1); PROTEIN TOTAL,TP 7.4 g/dL (6.4-8.2); SODIUM,NA 139 mmol/L (136-145)
[2023-08-24 02:11] LABS: ESTIMATED GFR 76 mL/min (>=60)
[2023-08-24 02:12] LABS: ETHANOL BLOOD MEDICAL < 3 mg/dL (NOT DETECTED)
[2023-08-24 02:13] LABS: AMPHETAMINES SCREEN, URINE NEGATIVE (NEGATIVE); BARBITURATE SCREEN,URINE NEGATIVE (NEGATIVE); BENZODIAZEPINES SCREEN,URINE NEGATIVE (NEGATIVE); COCAINE METABOLITES,URINE NEGATIVE (NEGATIVE); METHADONE SCREEN, URINE NEGATIVE (NEGATIVE); METHAMPHETAMINES SCREEN, URINE NEGATIVE (NEGATIVE); OXYCODONE SCREEN,URINE NEGATIVE (NEGATIVE); PCP SCREEN,URINE NEGATIVE (NEGATIVE); TCA SCREEN,URINE NEGATIVE (NEGATIVE); THC SCREEN,URINE 50 NG/ML NEGATIVE (NEGATIVE)
[2023-08-24 03:56] VITALS: BP 134/80; PULSE 73
== END 2023-08-24 02:32 | disposition home or self-care (01) ==
LOC: SUPCPDRO 01:10 → KA.ED 01:10
DX: R07.89 Other chest pain (principal); R10.13 Epigastric pain; R47.9 Unspecified speech disturbances; E66.9 Obesity, unspecified; Z86.16 Personal history of COVID-19; Z68.42 Body mass index [BMI] 45.0-49.9, adult; Z88.0 Allergy status to penicillin; Z88.5 Allergy status to narcotic agent
CPT/HCPCS: 80053; 80305-QW; 80307; 81001; 83690; 84484; 85025; 87086; 99285; A9270-GY; J3490

== ENCOUNTER 2023-09-07 20:13 | Emergency (ER) | payer MEDICAID ==
[2023-09-07 21:51] VITALS: BP 134/91; PULSE 94
== END 2023-09-07 22:37 | disposition home or self-care (01) ==
LOC: KA.ED 20:13
DX: H53.9 Unspecified visual disturbance (principal); E66.9 Obesity, unspecified; Z86.16 Personal history of COVID-19; Z79.899 Other long term (current) drug therapy; Z88.5 Allergy status to narcotic agent; Z88.0 Allergy status to penicillin; Z79.51 Long term (current) use of inhaled steroids; Z68.42 Body mass index [BMI] 45.0-49.9, adult
CPT/HCPCS: 70450; 99283; 99285

== ENCOUNTER 2023-09-10 19:21 | Emergency (ER) | payer MEDICAID ==
[2023-09-10 20:12] VITALS: BP 118/74; PULSE 81
== END 2023-09-10 20:05 | disposition home or self-care (01) ==
LOC: KA.ED 19:21
DX: R06.02 Shortness of breath (principal); R06.01 Orthopnea; J45.909 Unspecified asthma, uncomplicated; E66.9 Obesity, unspecified; Z68.42 Body mass index [BMI] 45.0-49.9, adult; Z86.16 Personal history of COVID-19; Z87.891 Personal history of nicotine dependence; Z79.899 Other long term (current) drug therapy; Z88.5 Allergy status to narcotic agent; Z88.0 Allergy status to penicillin
CPT/HCPCS: 99284